=== PATIENT | male | born 1995 | race Caucasian/White ===

== ENCOUNTER 2024-06-01 17:24 | Emergency (ER) | payer OTHER ==
[2024-06-01] MEDS: ACETAMINOPHEN TAB 325 MG TAB PO STA (20:10)
[2024-06-01] MEDS: AMOXIC-POT CLAV 875-125MG 1 EACH TAB PO STA (20:11)
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
[2024-06-02 00:15] LABS: Amphetamine Screen,Urine Not Detected (NotDetected); Barbiturate Screen,Urine Not Detected (NotDetected); Benzodiazepines Screen,Urine Not Detected (NotDetected); Cocaine Screen,Urine Not Detected (NotDetected); Methadone Screen, Urine Not Detected (NotDetected); Opiate Screen,Urine Not Detected (NotDetected); Oxycodone Screen, Urine Not Detected (NotDetected); Phencyclidine Screen,Urine Not Detected (NotDetected); Tricyclic Antidepressant,Urine Not Detected (NotDetected); Urn Cannabinoid Scrn Not Detected (NotDetected)
[2024-06-02 00:17] VITALS: BP 162/87; PULSE 58; RESP 16; TEMP 97.9
== END 2024-06-02 00:17 | disposition home or self-care (01) ==
LOC: EC 17:24
DX: S00.81XA Abrasion of other part of head, initial encounter (principal); Y04.2XXA Assault by strike against or bumped into by another person, initial encounter
CPT/HCPCS: 70450; 70486; 72125; 80306; 82075; 99284